=== PATIENT | male | born 1930 | race Caucasian/White ===

== ENCOUNTER 2019-01-13 20:46 | Observation (INO) | payer OTHER ==
[2019-01-13] MEDS ORDERED: TETANUS & DIPHTHERIA TOX,ADULT 0.5 ML VIAL ONE (21:26)
[2019-01-13 21:38] LABS: Absolute Lymphocytes (CBC) 1.5 K/uL (0.7-4.9); Basophils % 0.8 % (0-1.3); Eosinophils % 2.3 % (0-4.4); Hematocrit 39.5 % (39.6-49.0); MPV 7.6 fL (7.6-11.3); Monocytes % 7.2 % (3.3-12.3); RBC Red Blood Cell Count 4.44 M/uL (4.33-5.43)
[2019-01-13 21:58] LABS: BUN Blood Urea Nitrogen 35 mg/dL (7-18); Bicarbonate 23 mmol/L (21-32); Glucose Level 143 mg/dL (74-106); Potassium 3.4 mmol/L (3.5-5.1); Sodium Level 139 mmol/L (136-145); Troponin (Emerg Dept Use Only) < 0.02 ng/mL (0.0-0.045)
[2019-01-13] MEDS ORDERED: POTASSIUM CL SA 10 MEQ TAB PO ONE (22:32)
[2019-01-13] MEDS ORDERED: NA CHLORIDE 0.9% 1,000 ML ONE (22:32)
--- NOTE | 2019-01-13 23:26 | EDPHYS ---
Physician Documentation [facility] Name: Amalia Singh Age: 88 yrs Sex: Male : 1930 Arrival Date: 01/13/2019 Time: 20:51 Bed 6 Private MD: ED Physician Patricia Wynne HPI: 01/13 23:19 This 88 yrs old Male presents to ER via EMS with complaints of Fall Injury, ma2 Head Injury Without LOC-Adult. 23:20 Details of fall: The patient fell from a supine position. Onset: The symptoms/episode ma2 began/occurred suddenly, 1 day(s) ago. Associated injuries: The patient sustained injury to the head. Severity of symptoms: At their worst the symptoms were mild, in the emergency department the symptoms are unchanged. The patient has not experienced similar symptoms in the past. ?syncope, declined pain medicine in er . Historical: - Allergies: 21:02 No Known Allergies; tl1 - Home Meds: 21:17 amlodipine 10 mg tab 1 tab once daily [Active]; atorvastatin 80 mg oral tab 1 tab once aa1 daily [Active]; Plavix 75 mg Oral tab 1 tab once daily [Active]; escitalopram oxalate 5 mg oral tab 1 tab once daily [Active]; finasteride 5 mg oral tab 1 tab once daily [Active]; furosemide 40 mg Oral tab 1 tab 2 times per day [Active]; pantoprazole 40 mg oral TbEC 1 tab once daily [Active]; propafenone 225 mg Oral tab 1 tab every 8 hours [Active]; Combigan 0.2-0.5 % ophthalmic drop 2 drop three times a day [Active]; tamsulosin 0.4 mg oral cp24 1 cap once daily [Active]; isosorbide mononitrate 60 mg Oral Tb24 1 tab once daily [Active]; aspirin 81 mg Oral TbEC 1 tab once daily [Active]; Iron CR Oral 65 mg daily [Active]; omega-3 fatty acids 1,000 mg oral cap twice a day [Active]; - PMHx: 21:02 Hypertension; Atrial Fib; Glaucoma; BPH; Depression; High Cholesterol; tl1 - PSHx: 21:02 cardiac stents; back surgery; Knee surgery; shoulder surgery; Carpal Tunnel Repair; tl1 finger amputation; - Immunization history: Last tetanus immunization: unknown. - Social history:: Patient uses alcohol, Patient/guardian denies using street drugs, IV drugs, The patient lives with family, Smoking status: Patient/guardian denies using tobacco, the patient reports quitting approximately 30 years ago. - Family history:: not pertinent. - Ebola Screening: : Patient negative for fever greater than or equal to 101.5 degrees Fahrenheit, and additional compatible Ebola Virus Disease symptoms Patient denies exposure to infectious person Patient denies travel to an Ebola-affected area in the 21 days before illness onset. - Social history: Uses alcohol, glass of wine daily. Denies using tobacco products. ROS: 23:20 Constitutional: Negative for fever, chills, and weight loss, Cardiovascular: Negative ma2 for chest pain, palpitations, and edema, Respiratory: Negative for shortness of breath, cough, wheezing, and pleuritic chest pain, Abdomen/GI: Negative for abdominal pain, nausea, diarrhea, and constipation, Back: Negative for injury and pain, : Negative for injury, bleeding, discharge, and swelling, MS/Extremity: Negative for injury and deformity, Skin: Negative for injury, rash, and discoloration, Neuro: Negative for headache, weakness, numbness, tingling, and seizure. Exam: 23:20 Constitutional: This is a well developed, well nourished patient who is awake, alert, ma2 and in no acute distress. Chest/axilla: Normal chest wall appearance and motion. Nontender with no deformity. No lesions are appreciated. Cardiovascular: Regular rate and rhythm with a normal S1 and S2. No gallops, murmurs, or rubs. Normal PMI, no JVD. No pulse deficits. Respiratory: Lungs have equal breath sounds bilaterally, clear to auscultation and percussion. No rales, rhonchi or wheezes noted. No increased work of breathing, no retractions or nasal flaring. Abdomen/GI: Soft, non-tender, with normal bowel sounds. No distension or tympany. No guarding or rebound. No evidence of tenderness throughout. 23:20 MS/ Extremity: Pulses equal, no cyanosis. Neurovascular intact. Full, normal range of motion. Neuro: Awake and alert, GCS 15, oriented to person, place, time, and situation. Cranial nerves II-XII grossly intact. Motor strength 5/5 in all extremities. Sensory grossly intact. Cerebellar exam normal. Normal gait. 23:20 Head/face: Noted is contusion, laceration. 23:20 Musculoskeletal/extremity: left elbow abrasion with skin loss . ma2 Vital Signs: 20:57 BP 159 / 82; Pulse 87; Resp 17; Temp 98.1(O); Pulse Ox 100% ; Weight 87.09 kg; Height 5 tl1 ft. 10 in. (177.80 cm); Pain 2/10; 23:09 BP 144 / 61; Pulse 67; Resp 16; Pulse Ox 99% ; Pain 2/10; tl1 23:45 BP 146 / 72; Pulse 82; Resp 16; Temp 98.2; Pulse Ox 100% on R/A; Pain 5/10; tl1 20:57 Body Mass Index 27.55 (87.09 kg, 177.80 cm) tl1 [place] Coma Score: 20:57 Eye Response: spontaneous(4). Verbal Response: oriented(5). Motor Response: obeys tl1 commands(6). Total: 15. 22:00 Eye Response: spontaneous(4). Verbal Response: oriented(5). Motor Response: obeys tl1 commands(6). Total: 15. 23:46 Eye Response: spontaneous(4). Verbal Response: oriented(5). Motor Response: obeys tl1 commands(6). Total: 15. Trauma Score (Adult): 20:57 Eye Response: spontaneous(1); Verbal Response: oriented(1); Motor Response: obeys tl1 commands(2); Systolic BP: > 89 mm Hg(4); Respiratory Rate: 10 to 29 per min(4); [place] Score: 15; Trauma Score: 12 22:00 Eye Response: spontaneous(1); Verbal Response: oriented(1); Motor Response: obeys tl1 commands(2); Systolic BP: > 89 mm Hg(4); Respiratory Rate: 10 to 29 per min(4); Sherry Score: 15; Trauma Score: 12 23:46 Eye Response: spontaneous(1); Verbal Response: oriented(1); Motor Response: obeys tl1 commands(2); Systolic BP: > 89 mm Hg(4); Respiratory Rate: 10 to 29 per min(4); Sherry Score: 15; Trauma Score: 12 Laceration: 23:20 Wound Repair of 2cm ( 0.8in ) subcutaneous laceration to face. Linear shaped.. Distal ma2 neuro/vascular/tendon intact. Anesthesia: Local anesthetic administered with 2 mls of 1% lidocaine w/ Epi. Wound prep: Moderate cleansing. Skin closed with 4 4-0 Prolene using simple sutures and sterile technique. Dressed with 4x4's. MDM: 21:07 Patient medically screened. ma2 22:35 Patient medically screened. ma2 23:20 Differential diagnosis: abrasion, closed head injury, contusion, laceration. Data ma2 reviewed: vital signs, nurses notes. Counseling: I had a detailed discussion with the patient and/or guardian regarding: the historical points, exam findings, and any diagnostic results supporting the discharge/admit diagnosis, the presence of at least one elevated blood pressure reading (>120/80) during this emergency department visit, the need for further work-up and treatment in the hospital. Response to treatment: the patient's symptoms have resolved after treatment. 01/13 21:08 Order name: Basic Metabolic Panel; Complete Time: 22:01 [facility] 01/13 21:08 Order name: CBC with Diff; Complete Time: 22:01 [facility] 01/13 21:08 Order name: CT Traumagram (Head C Spine CAP wo con) [facility] 01/13 21:08 Order name: Creatinine for Radiology; Complete Time: 22:01 [facility] 01/13 21:08 Order name: Type And Screen [facility] 01/13 21:08 Order name: Troponin (emerg Dept Use Only); Complete Time: 22:01 [facility] 01/13 21:08 Order name: Elbow Left 3 View XRAY [facility] 01/13 21:08 Order name: Wrist Left (3 View) XRAY [facility] 01/13 21:41 Order name: Hip Left 2 View [facility] 01/13 23:15 Order name: EKG Electrocardiogram; Complete Time: 23:28 [facility] 01/13 21:08 Order name: Labs collected and sent; Complete Time: 21:32 [facility] Administered Medications: 21:15 Drug: Tetanus-Diphtheria Toxoid Adult 0.5 ml {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 Exp: tl1 09/22/2020. Lot #: [id number]. } Route: IM; Site: left deltoid; 23:28 Follow up: Response: No adverse reaction; No change in condition tl1 22:23 Drug: NS 0.9% 1000 ml Route: IV; Rate: 1 bolus; Site: left forearm; tl1 01/14 00:07 Follow up: IV Status: Completed infusion tl1 01/13 22:23 Drug: Potassium Chloride 40 mEq Route: PO; tl1 23:28 Follow up: Response: No adverse reaction; No change in condition tl1 23:43 Drug: traMADol 50 mg Route: PO; tl1 01/14 00:07 Follow up: Response: No adverse reaction; No change in condition; Other; medication tl1 administerde just prior to admit Disposition: 01/13/19 23:25 Hospitalization ordered by Stacie Sexton for Observation. Preliminary diagnosis is Syncope and collapse. - Bed requested for Telemetry/MedSurg (observation). - Status is Observation. tl1 - Condition is Stable. - Problem is new. - Symptoms are unchanged. UTI on Admission? No Signatures: Dispatcher [employer] EDMS Jackie Mejias RN RN Yasmine Ash RN RN 1 Erica Boateng RN RN 1 Patricia Wynne MD MD ak2 Corrections: (The following items were deleted from the chart) 01/13 23:41 23:25 Hospitalization Ordered by Stacie Sexton MD for Observation. Preliminary diagnosis is Syncope and collapse. Bed requested for Telemetry/MedSurg (observation). Status is Observation. Condition is Stable. Problem is new. Symptoms are unchanged. UTI on Admission? No. ma2 01/14 00:36 01/13 23:41 01/13/2019 23:25 Hospitalization Ordered by Stacie Sexton MD for tl1 Observation. Preliminary diagnosis is Syncope and collapse. Bed requested for Telemetry/MedSurg (observation). Status is Observation. Condition is Stable. Problem is new. Symptoms are unchanged. UTI on Admission? No. mw
--- NOTE | 2019-01-13 23:26 | ER ---
Nurse's Notes [facility] Name: Amalia Singh Age: 88 yrs Sex: Male : 1930 Arrival Date: 01/13/2019 Time: 20:51 Bed 6 Private MD: Diagnosis: Syncope and collapse Presentation: 01/13 20:53 Presenting complaint: Patient states: I was getting popcorn out of the cabinet and all tl1 of a sudden I tripped over my feet and hit the left side of my head on the floor and also hit my left elbow, left wrist and left hip. Care prior to arrival: dressing applied to wound to left forehead and left elbow. Mechanism of Injury: Fall. Trauma event details: Injury occurred in the [facility], Injury occurred: at home. Injury occurred: January 13, 2019 Injury occurred at: 19:30. 20:53 Acuity: KEREN 2 tl1 20:53 Method Of Arrival: EMS: [facility] tl1 23:47 Transition of care: patient was not received from another setting of care. Onset of tl1 symptoms was January 13, 2019. Risk Assessment: Do you want to hurt yourself or someone else? Patient reports no desire to harm self or others. Initial Sepsis Screen: Does the patient meet any 2 criteria? No. Patient's initial sepsis screen is negative. Does the patient have a suspected source of infection? No. Patient's initial sepsis screen is negative. Triage Assessment: 21:02 General: Appears in no apparent distress. Behavior is calm, cooperative, appropriate tl1 for age. Pain: Complains of pain in left evangelical, left elbow, left wrist, left hip Pain currently is 4 out of 10 on a pain scale. Quality of pain is described as aching. 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 Cardiovascular: Denies chest pain. Respiratory: Airway is patent Trachea midline Respiratory effort is even, unlabored, Respiratory pattern is regular, symmetrical, Breath sounds are clear bilaterally. GI: Abdomen is non-distended, Bowel sounds present X 4 quads. Abd is soft and non tender X 4 quads. : No signs and/or symptoms were reported regarding the genitourinary system. Derm: Skin is thin, Skin is pink, warm \T\ dry. Skin temperature is warm. Musculoskeletal: Tenderness present in left hip Reports pain in left hip. Injury Description: Head injury sustained to left evangelical is open, bleeding, did not have loss of consciousness, was sustained 1-2 hours ago. Laceration sustained to left evangelical is clean, 2.6 to 7.5 cm long, was sustained 1-2 hours ago. moderate bleeding noted at this time. skin tear noted to left elbow and left wrist. Trauma Activation: Alert Physician: ED Physician; Name: Dr Wynne; Notified At: 20:43; Arrived At: 20:43 Physician: General Surgeon; Name: ; Notified At: 20:43; Arrived At: Physician: Radiology; Name: Briana Tello Lindsy; Notified At: 20:43; Arrived At: 20:45 Physician: Respiratory; Name: ; Notified At: 20:43; Arrived At: Physician: Lab; Name: ; Notified At: 20:43; Arrived At: Historical: - Allergies: 21:02 No Known Allergies; tl1 - Home Meds: 21:17 amlodipine 10 mg tab 1 tab once daily [Active]; atorvastatin 80 mg oral tab 1 tab once aa1 daily [Active]; Plavix 75 mg Oral tab 1 tab once daily [Active]; escitalopram oxalate 5 mg oral tab 1 tab once daily [Active]; finasteride 5 mg oral tab 1 tab once daily [Active]; furosemide 40 mg Oral tab 1 tab 2 times per day [Active]; pantoprazole 40 mg oral TbEC 1 tab once daily [Active]; propafenone 225 mg Oral tab 1 tab every 8 hours [Active]; Combigan 0.2-0.5 % ophthalmic drop 2 drop three times a day [Active]; tamsulosin 0.4 mg oral cp24 1 cap once daily [Active]; isosorbide mononitrate 60 mg Oral Tb24 1 tab once daily [Active]; aspirin 81 mg Oral TbEC 1 tab once daily [Active]; Iron CR Oral 65 mg daily [Active]; omega-3 fatty acids 1,000 mg oral cap twice a day [Active]; - PMHx: 21:02 Hypertension; Atrial Fib; Glaucoma; BPH; Depression; High Cholesterol; tl1 - PSHx: 21:02 cardiac stents; back surgery; Knee surgery; shoulder surgery; Carpal Tunnel Repair; tl1 finger amputation; - Immunization history: Last tetanus immunization: unknown. - Social history:: Patient uses alcohol, Patient/guardian denies using street drugs, IV drugs, The patient lives with family, Smoking status: Patient/guardian denies using tobacco, the patient reports quitting approximately 30 years ago. - Family history:: not pertinent. - Ebola Screening: : Patient negative for fever greater than or equal to 101.5 degrees Fahrenheit, and additional compatible Ebola Virus Disease symptoms Patient denies exposure to infectious person Patient denies travel to an Ebola-affected area in the 21 days before illness onset. - Social history: Uses alcohol, glass of wine daily. Denies using tobacco products. Screenin:26 Abuse screen: Denies threats or abuse. Tuberculosis screening: No symptoms or risk tl1 factors identified. 23:47 Nutritional screening: No deficits noted. Fall Risk Fall in past 12 months (25 points). tl1 IV access (20 points). Primary Survey: 21:07 NO uncontrolled hemorrhage observed. A: The patient is alert. Airway: patent. tl1 Breathing/Chest: Respiratory pattern: regular, Respiratory effort: spontaneous, unlabored, Breath sounds: clear, bilaterally. Circulation: Pulses: palpable . Skin color: pink, Skin temperature: warm. Disability Alert. Exposure/Environment: All clothing and personal items were removed. Forensic evidence collection is not deemed to be indicated at this time. Items placed in patient belonging bag. There is no evidence of uncontrolled external bleeding. Obvious injury(ies) are noted at this time: laceration noted to left evangelical, skin tear noted to left wrist and left elbow. Reassessment Airway Airway Patent Breathing/Chest Respiratory pattern Regular Respiratory effort Spontaneous Unlabored Breath sounds Clear Chest inspection Symmetrical Circulation Color [place] Temperature Warm Dry Disability Alert. Secondary Survey: 21:25 HEENT: Head Other laceration to left evangelical Face No injury/deformity Eyes: No injury or tl1 deformity noted. to bilateral eyes. Ears: clear bilaterally. Nose: clear to bilateral nares. Throat: No injury or deformity noted. Gastrointestinal: No deficits noted. : No deficits noted. Musculoskeletal: Tenderness present in left hip Reports pain in left hip. Injury Description: Head injury sustained to left evangelical is open, bleeding, did not have loss of consciousness, was sustained 1-2 hours ago. Laceration sustained to left evangelical. Assessment: 21:52 Reassessment: see triage assessment. tl1 23:25 Reassessment: Patient and/or family updated on plan of care and expected duration. Pain tl1 level reassessed. Patient is alert, oriented x 3, equal unlabored respirations, skin warm/dry/pink. Patient states feeling better. Patient states symptoms have improved. General: Appears in no apparent distress. comfortable, Behavior is calm, cooperative, appropriate for age. Pain: Denies pain. Neuro: Level of Consciousness is awake, alert, obeys commands, Oriented to person, place, time, situation, Speech is normal, Pupils are PERRLA. Cardiovascular: Denies chest pain. Respiratory: Airway is patent Trachea midline Respiratory effort is even, unlabored, Breath sounds are clear bilaterally. GI: Abdomen is non-distended, Bowel sounds present X 4 quads. : No signs and/or symptoms were reported regarding the genitourinary system. Derm: Bruising that is dark purple, on left eye and left evangelical. Vital Signs: 20:57 BP 159 / 82; Pulse 87; Resp 17; Temp 98.1(O); Pulse Ox 100% ; Weight 87.09 kg; Height 5 tl1 ft. 10 in. (177.80 cm); Pain 2/10; 23:09 BP 144 / 61; Pulse 67; Resp 16; Pulse Ox 99% ; Pain 2/10; tl1 23:45 BP 146 / 72; Pulse 82; Resp 16; Temp 98.2; Pulse Ox 100% on R/A; Pain 5/10; tl1 20:57 Body Mass Index 27.55 (87.09 kg, 177.80 cm) tl1 [place] Coma Score: 20:57 Eye Response: spontaneous(4). Verbal Response: oriented(5). Motor Response: obeys tl1 commands(6). Total: 15. 22:00 Eye Response: spontaneous(4). Verbal Response: oriented(5). Motor Response: obeys tl1 commands(6). Total: 15. 23:46 Eye Response: spontaneous(4). Verbal Response: oriented(5). Motor Response: obeys tl1 commands(6). Total: 15. Trauma Score (Adult): 20:57 Eye Response: spontaneous(1); Verbal Response: oriented(1); Motor Response: obeys tl1 commands(2); Systolic BP: > 89 mm Hg(4); Respiratory Rate: 10 to 29 per min(4); Sherry Score: 15; Trauma Score: 12 22:00 Eye Response: spontaneous(1); Verbal Response: oriented(1); Motor Response: obeys tl1 commands(2); Systolic BP: > 89 mm Hg(4); Respiratory Rate: 10 to 29 per min(4); Sherry Score: 15; Trauma Score: 12 23:46 Eye Response: spontaneous(1); Verbal Response: oriented(1); Motor Response: obeys tl1 commands(2); Systolic BP: > 89 mm Hg(4); Respiratory Rate: 10 to 29 per min(4); [place] Score: 15; Trauma Score: 12 ED Course: 20:51 Patient arrived in ED. tl1 20:52 Erica Boateng, OSVALDO is Primary Nurse. tl1 20:57 Triage completed. tl1 21:06 Patricia Wynne MD is Attending Physician. ma2 21:06 Arm band placed on right wrist. tl1 21:06 Patient has correct armband on for positive identification. Placed in gown. Bed in low tl1 position. Call light in reach. Side rails up X 1. Adult w/ patient. Pulse ox on. NIBP on. Warm blanket given. 21:32 Inserted saline lock: 20 gauge in right wrist, using aseptic technique. Blood collected.ag4 21:50 Assist provider with laceration repair on left evangelical that was between 2.6 to 7.5 cm tl1 using sutures. Set up tray. Performed by Patricia Wynne MD Dressed with 4X4s, Joaquín. 21:53 Elbow Left 3 View XRAY In Process Unspecified. EDMS 21:53 Wrist Left (3 View) XRAY In Process Unspecified. EDMS 21:54 Hip Left 2 View In Process Unspecified. EDMS 22:00 CT Traumagram (Head C Spine CAP wo con) In Process Unspecified. EDMS 23:07 Wound care: to skin tear to left elbow located on left elbow was cleaned with tl1 Hibiclens, irrigated with normal saline, dressed with 4X4s, steri strips. 23:24 Stacie Sexton MD is Hospitalizing Provider. ma2 23:48 Patient maintains SpO2 saturation greater than 95% on room air. Thermoregulation: warm tl1 blanket given to patient. 01/14 00:09 Patient admitted, IV remains in place. 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 Exp: tl1 09/22/2020. Lot #: [id number]. } Route: IM; Site: left deltoid; 23:28 Follow up: Response: No adverse reaction; No change in condition tl1 22:23 Drug: NS 0.9% 1000 ml Route: IV; Rate: 1 bolus; Site: left forearm; tl1 01/14 00:07 Follow up: IV Status: Completed infusion tl1 01/13 22:23 Drug: Potassium Chloride 40 mEq Route: PO; tl1 23:28 Follow up: Response: No adverse reaction; No change in condition tl1 23:43 Drug: traMADol 50 mg Route: PO; tl1 01/14 00:07 Follow up: Response: No adverse reaction; No change in condition; Other; medication tl1 administerde just prior to admit Intake: 01/13 23:53 IV: 1000ml; Total: 1000ml. tl1 Output: 23:53 Urine: 400ml (Voided); Total: 400ml. tl1 Outcome: 23:25 Decision to Hospitalize by Provider. ma2 23:48 Patient's length of stay in the Emergency Department was greater than 2 hours. Patient tl1 being admittedPatient's length of stay extended due to 01/14 00:08 Admitted to Tele accompanied by tech, via stretcher, with chart, Report called to tl1 Rajni RILEY Condition: stable Instructed on the need for admit. 00:36 Patient left the ED. tl1 Signatures: Dispatcher [employer] EDMS Yasmine Ash RN RN aa1 Helena Escobar RN RN bb Erica Boateng RN RN tl1 Patricia Wynne MD MD ma2 [place] ag4 Corrections: (The following items were deleted from the chart) 01/13 21:10 20:53 Trauma Activation: Alert tl1 bb 23:53 23:23 IV 1000, Intake Total 1000; Urine 400, (Voided), Output Total 400. tl1 tl1
--- NOTE | 2019-01-13 23:41 | P.HP ---
Certification for Inpatient Patient admitted to: Observation With expected LOS: <2 Midnights Practitioner: I am a practitioner with admitting privileges, knowledge of patient current condition, hospital course, and medical plan of care. Services: Services provided to patient in accordance with Admission requirements found in Title 42 Section 412.3 of the Code of Federal Regulations Patient History Date of Service: 01/13/19 Reason for admission: syncope, fall History of Present Illness: Mr Singh is an 88 years old male with history of CAD, HTN, dyslipidemia, PVD, BPH, who was with his family in a beach house today. He was trying to get popcorn out of the cabinet, when suddenly he fell and hit his left side of the head to the ground. The patient denied dizziness or palpitation prior to fall. He did not loss his conscious, but he does not remember how did it happened. He denied chest pain or SOB. and son said that he is not very steady in his feet, and he may tripped. EKG shows SR at 65 bpm, trop I negative. CT head/ cervical/chest/abd/pelvis showed no acute abnormalities. EKG SR at 65 with T wave inversion on inferior leads. Home medications list reviewed: Yes - Past Medical/Surgical History -: Hypertension; Atrial Fib; Glaucoma; BPH; Depression; High Cholesterol -: cardiac stents; back surgery; Knee surgery; shoulder surgery; Carpal Tunnel - Family History Family History: Reviewed- Non-Contributory - Social History Smoking Status: Former smoker Alcohol use: Yes CD- Drugs: No Place of Residence: Home Review of Systems 10-point ROS is otherwise unremarkable Physical Examination - Physical Exam General: Alert, In no apparent distress, Oriented x3 HEENT: PERRLA, Mucous membr. moist/pink, Other (left periorbital hematoma), EOMI , Sclerae nonicteric Neck: Supple, 2+ carotid pulse no bruit, No LAD, Without JVD or thyroid abnormality Respiratory: Clear to auscultation bilaterally, Normal air movement Cardiovascular: Regular rate/rhythm, Normal S1 S2 Gastrointestinal: Normal bowel sounds, No tenderness Musculoskeletal: No tenderness Integumentary: No rashes, Skin lesion (left arm) Neurological: Normal speech, Normal strength at 5/5 x4 extr, Normal tone, Normal affect Lymphatics: No axilla or inguinal lymphadenopathy - Studies Laboratory Data (last 24 hrs) 01/13/19 21:20: Creatinine 1.59 H 01/13/19 21:20: WBC 8.9, Hgb 13.1 L, Hct 39.5 L, Plt Count 223 01/13/19 21:20: Sodium 139, Potassium 3.4 L, BUN 35 H, Creatinine 1.65 H, Glucose 143 H Assessment and Plan - Problems (Diagnosis) (1) Syncope Current Visit: Yes Status: Acute Qualifiers: Syncope type: unspecified Qualified Code(s): R55 - Syncope and collapse (2) HTN (hypertension) Current Visit: Yes Status: Acute Qualifiers: Hypertension type: essential hypertension Qualified Code(s): I10 - Essential (primary) hypertension (3) CAD (coronary artery disease) Current Visit: Yes Status: Acute Qualifiers: Coronary Disease-Associated Artery/Lesion type: [place] artery [place] vs. transplanted heart: [place] heart Associated angina: without angina Qualified Code(s): I25.10 - Atherosclerotic heart disease of [place] coronary artery without angina pectoris (4) Acute renal injury Current Visit: Yes Status: Acute - Plan will admit the patient under observation due to a fall at home. Differential diagnosis include syncope vs tripped and fall. 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 Consult PT for evaluation and recommendations. - Advance Directives Does patient have a Living Will: No Does patient have a Durable POA for Healthcare: No - Code Status/Comfort Care Code Status Assessed: Yes Code Status: Full Code
[2019-01-13] MEDS ORDERED: TRAMADOL HCL 50 MG TAB ONE (23:56)
[2019-01-14] MEDS ORDERED: TRAMADOL HCL 50 MG TAB PO PRN (00:43)
[2019-01-14] MEDS ORDERED: ONDANSETRON 4 MG/2 ML VIAL IV PRN (00:43)
[2019-01-14] MEDS ORDERED: D5W 1,000 ML IV SCH (00:43)
[2019-01-14 00:59] VITALS: BMI 27.6
[2019-01-14 02:42] LABS: Urine Appearance CLEAR; Urine Bilirubin NEGATIVE (NEG); Urine Blood NEGATIVE (NEG); Urine Color YELLOW; Urine Glucose NEGATIVE (NEG); Urine Protein NEGATIVE (NEG)
[2019-01-14 02:45] LABS: Urine Microscopic Reflex NO UMIC
[2019-01-14] MEDS ORDERED: NA CHLORIDE 0.9% 1,000 ML IV SCH (03:00)
[2019-01-14 05:27] LABS: Absolute Lymphocytes (CBC) 1.1 K/uL (0.7-4.9); Basophils % 0.5 % (0-1.3); Eosinophils % 1.6 % (0-4.4); Hematocrit 30.9 % (39.6-49.0); Lymphocytes % 13.7 % (15.3-44.8); MPV 7.7 fL (7.6-11.3); Monocytes % 9.2 % (3.3-12.3); RBC Red Blood Cell Count 3.47 M/uL (4.33-5.43)
[2019-01-14 05:43] LABS: Potassium 3.8 mmol/L (3.5-5.1)
--- NOTE | 2019-01-14 07:46 | EKG ---
Test Date: 2019-01-13 Test Time: 23:33:08 Appraisal Analyst: AG3 MEASUREMENT RESULTS: Intervals: Rate: 65 OR: 218 QRSD: 114 QT: 430 QTc: 447 [place]: P: 75 OR: 218 QRS: 83 T: -6 INTERPRETIVE STATEMENTS: Sinus rhythm with 1st degree AV block Possible Anterior infarct, age undetermined ST & T wave abnormality, consider inferior ischemia Abnormal ECG No previous ECG available for comparison Electronically Signed On 01-14-19 07:45:51 CDT by Earl Nguyen
--- NOTE | 2019-01-14 08:39 | RAD REPORT ---
EXAM DESCRIPTION: RAD - Wrist Left 3 View - 01/13/2019 9:54 pm CLINICAL HISTORY: Slip and fall, left wrist pain COMPARISON: None. FINDINGS: No acute fracture is identifiable. There is evidence for old trauma changes to the distal radius and ulna. Old ulna styloid fracture without bony union is noted. Patient has severe degenerati ve change at the scaphoid trapezial articulation and moderately severe degenerative change at the tra pezium first metacarpal articulation. Scapholunate joint space widening noted. Triangular fibrocartil age calcifications are present. No foreign body or other soft tissue abnormality. IMPRESSION: Advanced degenerative changes are present in the wrist as detailed. No acute fracture change seen. Repeat imaging in 7 days recommended if the patient has continued symp toms concerning for fracture.
--- NOTE | 2019-01-14 08:40 | RAD REPORT ---
EXAM DESCRIPTION: RAD - Elbow Left 3 View - 01/13/2019 9:54 pm CLINICAL HISTORY: Trip and fall, elbow pain COMPARISON: None. FINDINGS: No gross fracture deformity seen. A small curvilinear bone density is seen adjacent to the radial head articular surface. While this is potentially a small bone avulsion, this is favored to b e degenerative calcification along the joint capsule. Patient has additional degenerative calcificati ons along the joint capsule. No elevation of the posterior fat pad. There is no dislocation or perios teal reaction noted. No foreign body or other soft tissue abnormality. IMPRESSION: Scattered degenerative changes are present in the left elbow joint. No acute fracture co nfirmed.
--- NOTE | 2019-01-14 08:42 | RAD REPORT ---
EXAM DESCRIPTION: RAD - Hip Left 2 View - 01/13/2019 9:54 pm CLINICAL HISTORY: Trip and fall, hip pain COMPARISON: None. FINDINGS: AP and frogleg views of the left hip were obtained. No fracture confirmed. No dislocation of the femoral head. No AVN or acute femoral head finding identified. Mild to moderate degenerative c hanges are present along the superior aspect of the hip joint. Degenerative periarticular calcificati ons are present. Dense arterial tree calcifications are seen. No pathologic bone process. No fracture of the partially imaged left hemipelvis. No significant periarticular soft tissue finding. IMPRESSION: Left hip degenerative changes are present up to moderate in severity without fracture or acute finding seen. Follow-up MR imaging or thin section CT imaging could be performed if the patient has continued sympt oms concerning for fracture
--- NOTE | 2019-01-14 11:21 | P.PN ---
Subjective Date of Service: 01/14/19 Chief Complaint: syncope, fall PATIENT SEEN AND EXAMINED AT BEDSIDE WITH RN. CHART REVIEWED. THIS MORNING PATIENT HAS BEEN DOING WELL OVERALL. NO COMPLAINTS TO OFFER. HAS BEEN GETTING UP IN AND OUT OF BED WITH . Review of Systems 10-point ROS is otherwise unremarkable Physical Examination - Vital Signs Temperature: 97.3 F Blood Pressure: 152/67 Pulse: 70 Respirations: 18 Pulse Ox (%): 92 - Physical Exam General: Alert, In no apparent distress HEENT: Other (Bruising noted on the left.) Neck: Supple, JVD not distended Respiratory: Clear to auscultation bilaterally, Normal air movement Cardiovascular: Regular rate/rhythm, Normal S1 S2 Gastrointestinal: Normal bowel sounds, No tenderness Musculoskeletal: No tenderness Integumentary: No rashes Neurological: Normal speech, Normal tone, Normal affect Lymphatics: No axilla or inguinal lymphadenopathy - Studies Laboratory Data (last 24 hrs) 01/13/19 21:20: Creatinine 1.59 H 01/13/19 21:20: WBC 8.9, Hgb 13.1 L, Hct 39.5 L, Plt Count 223 01/13/19 21:20: Sodium 139, Potassium 3.4 L, BUN 35 H, Creatinine 1.65 H, Glucose 143 H Medications List Reviewed: Yes Assessment And Plan - Current Problems (Diagnosis) (1) Syncope Current Visit: Yes Status: Acute Plan: Acute syncopal episode most likely secondary to vasovagal versus cardiogenic -echocardiogram, carotid Doppler and brain MRI pending at this time -cardiology consulted awaiting recommendations at this time -patient orthostatics vitals are positive at this time -PTOT consulted as well -will await results from echocardiogram and brain MRI for further treatment. Qualifiers: Syncope type: unspecified Qualified Code(s): R55 - Syncope and collapse (2) Acute renal injury Current Visit: Yes Status: Acute Plan: Patient initially with DEBRA. Initial BUN and creatinine elevated. -BUN creatinine improved today with IV fluids (3) CAD (coronary artery disease) Current Visit: Yes Status: Chronic Qualifiers: Coronary Disease-Associated Artery/Lesion type: [place] artery [place] vs. transplanted heart: [place] heart Associated angina: without angina Qualified Code(s): I25.10 - Atherosclerotic heart disease of [place] coronary artery without angina pectoris (4) HTN (hypertension) Current Visit: Yes Status: Chronic Qualifiers: Hypertension type: essential hypertension Qualified Code(s): I10 - Essential (primary) hypertension - Plan Patient pending clinical improvement at this time. Will await echo and brain MRI at this time as well. Discharge Plan: Home Plan to discharge in: Greater than 2 days - Code Status/Comfort Care Code Status Assessed: Yes Critical Care: No
--- NOTE | 2019-01-14 12:50 | RAD REPORT ---
EXAM DESCRIPTION: US - CP - 01/14/2019 11:47 am COMPARISON: Syncope TECHNIQUE: Real-time sonographic evaluation of both carotid systems was performed. Coley scale and Do ppler interrogation were performed with waveform tracing bilaterally. FINDINGS: Normal high resistance waveforms are noted in both external carotid arteries. The common c arotid arteries and internal carotid arteries show normal low resistance waveforms. Mild plaquing changes are seen in the distal right common carotid artery. More prominent plaquing jose luis nges present in the distal and midportion of the left common carotid artery. On visual inspection no significant degree of luminal narrowing seen. Plaquing changes extend into the left carotid bulb. Pea k systolic and end diastolic velocity values and the ICA/CCA ratios are in the non-hemodynamically si gnificant range. Antegrade flow seen in both vertebral arteries. Velocity values and ratios were recorded and are retained in the patient's imaging records. IMPRESSION: Bilateral calcified and noncalcified plaquing changes are present. On visual inspection no significant luminal narrowing seen. Velocity values and ratios indicate no significant degree of stenosis.
[2019-01-14] MEDS: PROPAFENONE HCL 150 MG TAB PO SCH ×2 (15:03→21:18)
[2019-01-14] MEDS ORDERED: ATORVASTATIN 80 MG TAB PO SCH (21:00)
[2019-01-15] MEDS ORDERED: PANTOPRAZOLE 40MG TABLET PO SCH (06:30)
[2019-01-15] MEDS: PROPAFENONE HCL 150 MG TAB PO SCH (08:27)
[2019-01-15 08:28] VITALS: BP 185/75
[2019-01-15 08:36] VITALS: O2SAT 93
[2019-01-15] MEDS ORDERED: TAMSULOSIN 0.4 MG SR CAP PO SCH (09:00)
[2019-01-15] MEDS ORDERED: ESCITALOPRAM 20 MG TAB PO SCH (09:00)
[2019-01-15] MEDS ORDERED: FERROUS SULFATE 325 MG TAB PO SCH (09:00)
[2019-01-15] MEDS ORDERED: DOCOSAHEXANOIC AC/EPA 1000 MG PO SCH (09:00)
[2019-01-15] MEDS ORDERED: MULTIVITAMIN TAB PO SCH (09:00)
[2019-01-15] MEDS ORDERED: FUROSEMIDE 40 MG TABLET PO SCH (09:00)
[2019-01-15 09:18] VITALS: TEMP 98.1
--- NOTE | 2019-01-15 10:31 | P.DS ---
Admission Date: 01/13/19 Discharge Date: 01/15/19 Disposition: ROUTINE DISCHARGE Discharge Condition: FAIR Reason for Admission: syncope, fall Consultations: Cardiology - Problems (1) Syncope Current Visit: Yes Status: Acute Qualifiers: Syncope type: unspecified Qualified Code(s): R55 - Syncope and collapse (2) Acute renal injury Current Visit: Yes Status: Acute (3) CAD (coronary artery disease) Current Visit: Yes Status: Chronic Qualifiers: Coronary Disease-Associated Artery/Lesion type: [place] artery [place] vs. transplanted heart: [place] heart Associated angina: without angina Qualified Code(s): I25.10 - Atherosclerotic heart disease of [place] coronary artery without angina pectoris (4) HTN (hypertension) Current Visit: Yes Status: Chronic Qualifiers: Hypertension type: essential hypertension Qualified Code(s): I10 - Essential (primary) hypertension Brief History of Present Illness: Mr Singh is an 88 years old male with history of CAD, HTN, dyslipidemia, PVD, BPH, who was with his family in a beach house today. He was trying to get popcorn out of the cabinet, when suddenly he fell and hit his left side of the head to the ground. The patient denied dizziness or palpitation prior to fall. He did not loss his conscious, but he does not remember how did it happened. He denied chest pain or SOB. and son said that he is not very steady in his feet, and he may tripped. EKG shows SR at 65 bpm, trop I negative. CT head/ cervical/chest/abd/pelvis showed no acute abnormalities. EKG SR at 65 with T wave inversion on inferior leads. Hospital Course: Overall during the hospital stay patient remained stable Patient was initially admitted to the hospital for syncope episode at home. Patient had extensive workup done here in the hospital along with lab work. Cardiology was consulted. Patient had a head CT which was negative for any acute abnormality. Patient was kept on cardiac tele which did not reveal any acute abnormality as well. Cardiology saw the patient and recommended the patient can be observed in the hospital for 24 hr and then discharged home and thinks that his syncopal episode was most likely secondary to orthostatics hypotension. Patient was recently started on finasteride and that could cause her to have low blood pressure and syncopal episode. Patient was asked to stop taking the finasteride and take Lasix on p.r.n. basis only. Patient then was asked to follow up with cardiology along with a primary care doctor outpatient. Due to the fact that patient had recent echocardiogram done repeated 1 that is not required here in the hospital. Patient did not have any other neurological signs that warranted any brain MRI. At this time and then patient was discharged home when he was able to ambulate and tolerate his diet well. Vital Signs/Physical Exam: Temp Pulse Resp BP Pulse Ox 98.1 F 71 17 185/75 H 93 01/15/19 08:00 01/15/19 08:26 01/15/19 08:00 01/15/19 08:26 01/15/19 08:00 General: Alert, In no apparent distress HEENT: Atraumatic, PERRLA, EOMI Neck: Supple, JVD not distended Respiratory: Clear to auscultation bilaterally, Normal air movement Cardiovascular: Regular rate/rhythm, Normal S1 S2 Gastrointestinal: Normal bowel sounds, No tenderness Musculoskeletal: No tenderness Integumentary: No rashes Neurological: Normal speech, Normal tone, Normal affect Lymphatics: No axilla or inguinal lymphadenopathy Laboratory Data at Discharge: WBC 8.2 K/uL (4.3-10.9) 01/14/19 04:47 Hgb 10.5 g/dL (13.6-17.9) L D 01/14/19 04:47 Hct 30.9 % (39.6-49.0) L D 01/14/19 04:47 Plt Count 180 K/uL (152-406) 01/14/19 04:47 Sodium 140 mmol/L (136-145) 01/14/19 04:47 Potassium 3.8 mmol/L (3.5-5.1) 01/14/19 04:47 BUN 32 mg/dL (7-18) H 01/14/19 04:47 Creatinine 1.26 mg/dL (0.55-1.3) 01/14/19 04:47 Glucose 117 mg/dL (74-106) H 01/14/19 04:47 Home Medications: Amlodipine [Norvasc*] 1 tab PO DAILY 01/14/19 Aspirin [Aspirin EC 81 MG] 1 tab PO DAILY 01/14/19 Atorvastatin Calcium [Lipitor] 1 tab PO BEDTIME 01/14/19 Brimonidine Tartrate/Timolol [Combigan 0.2%-0.5% Eye Drops] 2 drops EACH EYE TID 01/14/19 Clopidogrel Bisulfate [Plavix*] 1 tab PO DAILY 01/14/19 Escitalopram Oxalate [Lexapro] 1 tab PO DAILY 01/14/19 Iron 65 mg PO DAILY 01/14/19 Isosorbide Mononitrate [Isosorbide Mononitrate ER] 1 tab PO BEDTIME 01/14/19 Multivitamin with Minerals [Multivitamins with Minerals] 1 tab PO DAILY [place] 3 1,000 mg PO BID 01/14/19 Pantoprazole [Protonix Tab*] 1 tab PO DAILY 01/14/19 Propafenone [Rythmol SR] 1 cap PO Q8H 01/14/19 Tamsulosin [Flomax*] 1 tab PO DAILY 01/14/19 Patient Discharge Instructions: Please F.u With PCP and Cardiology in 1 to 2 week post discharge. Stop taking medication. Finstratide and Lasix. Resume all other medication as provided Diet: Regular Activity: Ad kit Followup: Earl Nguyen MD [ACTIVE - CAN ADMIT] - 1 Week (call to schedule appointment)
--- NOTE | 2019-01-15 15:55 | CON ---
Date of Consultation: 01/15/2019 The patient was admitted on 01/13/[address] Sawant's service. I saw the patient on 01/15/2019. Reason For Consultation: Syncope. History Of Present Illness: Mr. Singh is an 88-year-old white male, who basically has a past medical history of coronary artery disease status post PCI that was back in 1986 and he has a history of per ipheral arterial disease, dyslipidemia, depression, glaucoma, atrial fibrillation, and hypertension. Recently, he had a procedure for abdominal angiogram and had some bleeding in the groin area, remain ed in the hospital for 11 days. They put him on isosorbide mononitrate after that, I am assuming per ipheral vascular disease. No intervention was done. He has recently had echocardiography and caroti d Doppler in [facility] by Dr. Del Alicea, both of which were negative. He has been yosef shirley on Lasix 40 mg b.i.d. and they had finasteride added to his regimen recently. He came in with a syncopal episode, head trauma, left arm trauma, but no fractures, no bleeding. Internally, as far as we know, all his x-ray and CT of his head have been negative so far. He denied any symptoms ___. Measurement of orthostatic blood pressures have been positive since he has been to the hospital . He denied any chest pain, nausea, vomiting, diaphoresis, PND, orthopnea, pedal edema, or palpitati ons. Past Medical History: As stated above. Allergies: NONE. Review of Systems: Negative. Social History: Negative. Family History: Noncontributory. Medications At Home: Include iron, aspirin, Norvasc, Lipitor, Plavix, Lexapro, Lasix, finasteride, I mdur, Protonix, Flomax, and Rythmol. Physical Examination: General: He was in no acute distress, very pleasant, alert and oriented x3. Vital Signs: Stable. He was afebrile. HEENT: Positive for hematomas across the preorbital area on the left side as well as his parietal an d occipital region. He had bruises all over his left arm. Neck: Supple without any bruits, lymphadenopathy, JVD, or thyromegaly. Chest: Clear to auscultation and percussion. Cardiac: Revealed a regular rhythm and rate. No murmurs, gallops, or rubs. Abdomen: Benign. Extremities: Revealed no clubbing, cyanosis, or edema. Neurologic: He was intact. He had poor pulses in the dorsalis pedis and posterior tibial. Skin: Showed hematomas over the left periorbital area, left scalp, left arm. Diagnostic Data: His hemoglobin was 10.1. Creatinine is 1.59. Carotid Doppler was negative. EKG s howed possible old anterior SD. X-rays of the pelvis and arm, and the chest, CT of the head, all of which were negative. Impression And Plan: 1.Syncope, secondary to orthostatic hypotension. The patient takes Norvasc, Lasix, Lexapro, finaste ride, and Flomax, and I think the combination of these made him hypotensive. I think we can continue his Norvasc and Flomax and Lexapro, but I think we should take him off the finasteride and have him take Lasix only as needed. He will weigh himself daily, watch his salt intake; and if his weight is stable and he does not have any edema, we can probably skip the Lasix. He will follow up with Dr. Ra gamino in the near future. 2.Anemia, on iron. 3.Hypertension, on Norvasc, stable. 4.Dyslipidemia, on Lipitor, stable. 5.History of coronary artery disease, status post stent, seems to be stable. Has had testing by Dr. Alicea that were normal. 6.Depression. 7.Benign prostatic hypertrophy. 8.Gastroesophageal reflux disease. 9.Atrial fibrillation, in sinus rhythm, on Rythmol. 10.History of glaucoma. 11.Chronic renal insufficiency, stage 3, stable. I believe Mr. Singh can go home from my standpoint with the above-mentioned instructions. I do not t hink we need to repeat any cardiac testing at this point. The patient and his understand what joey ramos discussed. The case was discussed with Dr. Sawant. JAMES/MARK ANTHONY Voice ID: [id number] Report ID: [id number]
--- NOTE | 2019-01-16 13:10 | RAD REPORT ---
EXAM DESCRIPTION: CT - Head C Spine Cap Wo Juan F - 01/14/2019 1:26 am CLINICAL HISTORY: Trauma. Headache and left hip pain. COMPARISON: None. TECHNIQUE: 1. CT scan of the brain and cervical spine without IV contrast. 2. CT scan of the chest, abdomen, and pelvis without IV contrast. This exam was performed according to our departmental dose-optimization program, which includes autom ated exposure control, adjustment of the mA and/or kV according to patient size and/or use of iterati ve reconstruction technique. FINDINGS: BRAIN: Diffuse involutional changes are present. There are scattered areas of hypoattenuation within the per iventricular white matter, which likely represent chronic microvascular ischemia. No evidence of acut e infarction, intracranial hemorrhage, extra-axial fluid collection, or midline shift. No air-fluid l evels are seen in the paranasal sinuses to suggest acute sinusitis. No depressed skull fracture. CERVICAL SPINE: No acute cervical fracture or prevertebral soft tissue swelling. There is straightening of the normal cervical lordosis, which may be due to cervical collar, muscle spasm, or patient positioning. Multil evel degenerative disc disease along with facet arthropathy is present. There are multilevel disc bul ges but without advanced canal stenosis identified. CHEST: The thyroid gland is unremarkable. No mediastinal or axillary adenopathy. Limited evaluation for mallory r adenopathy without IV contrast. The heart size is normal without pericardial effusion. No consolida tion, pleural effusion, or pneumothorax. ABDOMEN/PELVIS: The liver, gallbladder, spleen, pancreas, and adrenal glands are normal. The pelvic organs are also n ormal. The small and large bowel are unremarkable. Normal appendix. No intraperitoneal free fluid or free air. Multiple bilateral renal cysts including a hyperdense cyst measuring 4.7 cm and the left kidney with surrounding inflammatory stranding, which may represent a partially ruptured left renal cyst. There i s a small diverticulum arising off the left posterior urinary bladder. No pathologic body wall hernia . OTHER: The aorta is normal caliber without dissection. Increased sclerosis of bilateral femoral heads, nonsp ecific. No acute compression fracture of the thoracolumbar spine. IMPRESSION: 1. No acute intracranial hemorrhage or cervical fracture. 2. No evidence of solid or hollow viscus injury. 3. No acute fracture. 4. Findings suggesting partially ruptured left renal cyst. Electronically signed by: Arsen Garcia MD 01/13/2019 10:40 PM CDT Due to temporary technical issues with the PACS/Fluency reporting system, reports are being signed by the in house radiologist as a courtesy to ensure prompt reporting. The interpreting radiologist is f ully responsible for the content of the report.
== END 2019-01-15 12:25 | disposition home or self-care (01) ==
LOC: ER 20:46 → ERHOLD 23:14 → 4TH 01-14 00:10
PROVIDERS: ADMIT Internal Medicine; ATTEND Internal Medicine
PROC: 0JQ10ZZ Repair Face Subcutaneous Tissue and Fascia, Open Approach (ICD-10-PCS; principal; 2019-01-13)
DX: R55 Syncope and collapse (principal); N17.9 Acute kidney failure, unspecified; S01.81XA Laceration without foreign body of other part of head, initial encounter; I25.10 Atherosclerotic heart disease of native coronary artery without angina pectoris; I10 Essential (primary) hypertension; E78.5 Hyperlipidemia, unspecified; W18.39XA Other fall on same level, initial encounter; Y92.009 Unspecified place in unspecified non-institutional (private) residence as the place of occurrence of the external cause; Z23 Encounter for immunization; Z95.5 Presence of coronary angioplasty implant and graft
CPT/HCPCS: 96361; 93005; 85025 ×2; 80048 ×2; 36415; 86900; 86850; 86901; 81003; 84484; 70450; 71250; 72125; 73502; 73080; 73110; 90471; 93880; 90714; 97163; 96360; 99285; 12011; J7030 ×2; G0378 ×2